=== PATIENT | female | born 1965 ===

== ENCOUNTER 2021-03-13 12:37 | Emergency (ER) | payer OTHER ==
[~2021-03-13] VITALS: Ht 157.5 cm; Wt 77.1 kg
[2021-03-13] MEDS ORDERED: JARDIANCE10 MG (12:44)
[2021-03-13] MEDS ORDERED: LOSARTAN POTASSI1 GM (12:45)
[2021-03-13] MEDS ORDERED: TOPROL XL50 M1 PO (12:45)
[2021-03-13] MEDS ORDERED: LIPITOR40 M1 PO (12:45)
[2021-03-13] MEDS ORDERED: NORFLEX100MG PO (15:56)
== END 2021-03-13 15:59 | disposition home or self-care (01) ==
LOC: ER 12:37
DX: M25.511 Pain in right shoulder (principal); M54.2 Cervicalgia